=== PATIENT | female | born 1965 | race Caucasian/White ===

== ENCOUNTER 2021-12-04 08:42 | Outpatient (CLI) | payer OTHER, SELFPAY ==
--- NOTE | 2021-12-04 10:36 | W.ANESCHARGE ---
Anesthesia Charges Start Date/Time Anesthesia Start Date: 12/04/21 Anesthesia Start Time: 09:52 Stop Date/Time Anesthesia Stop Date: 12/04/21 Anesthesia Stop Time: 10:23 Summary Emergency: No
--- NOTE | 2021-12-04 11:33 | W.ANESCHARGE ---
Anesthesia Charges Start Date/Time Anesthesia Start Date: 12/04/21 Anesthesia Start Time: 09:52 Stop Date/Time Anesthesia Stop Date: 12/04/21 Anesthesia Stop Time: 10:23 Summary Emergency: No
== END 2021-12-04 08:43 | disposition home or self-care (01) ==
LOC: OP CLINIC 08:43
PROVIDERS: PCP Physician Assistant Medical; Referring Provider Surgery; Visit Provider Surgery
DX: Z12.11 Encounter for screening for malignant neoplasm of colon (principal); Z80.0 Family history of malignant neoplasm of digestive organs
CPT/HCPCS: G0105; 811; J2704

== ENCOUNTER 2023-03-13 12:48 | Outpatient (CLI) | payer OTHER, SELFPAY ==
--- NOTE | 2023-03-13 13:00 | CRLHL7_ITS ---
For Patients: As a result of the Century Cures Act, medical imaging exams and procedure reports are released immediately into your electronic medical record. You may view this report before your referring provider. If you have questions, please contact your health care provider. DXA BONE MINERAL DENSITY STUDY Reason for exam: On PPI treatment. Postmenopausal. Current height (in): 63. Weight (lb): 128. Menopause age: 43. Ethnicity: White. 1. Have you had a previous hip or vertebral fracture? No. 2. Have you had any fractures during your adult life which did not result from significant trauma (e.g., auto accident)? No. 3. Did either of your parents have a hip fracture? No. 4. Do you smoke? No. 5. Have you ever taken Glucocorticoids? No. 6. Do you have rheumatoid arthritis? No. 7. Do you have secondary osteoporosis? No. 8. Do you drink 3 or more alcoholic drinks per day? No. 9. Are you being treated for osteoporosis? No. 10. Have you ever taken any of the following medications: Actonel, Evista, Fosamax, Miacalcin, Reclast, Boniva, Forteo, HRT (i.e., estrogen/hormone therapy), Protelos, Prolia, Vitamin D, Calcium, other ??? please specify. ANSWER: Yes, calcium and omeprazole. 11. Do you have any of the following medical conditions: Anorexia or bulimia, asthma or emphysema, end stage renal disease, hyperparathyroidism, any seizure disorders, cancer, inflammatory bowel diseases, hysterectomy, other ??? please specify. ANSWER: No. 12. What was your maximum height (inches)? 63. 13. Do you perform weight bearing exercise regularly? Yes. 14. Do you regularly consume dairy products? No. 15. Do you drink caffeinated beverages? Yes. If female: 16. At what age did your period start? 14. 17. Are you premenopausal? No. 18. How many full-term pregnancies have you had? 2. 19. Have you ever missed your period for more than 6 months in a row (not including or menopause)? No. TECHNIQUE: Bone mineral density study was performed using the [employer]. FINDINGS: The results of the study expressed as bone mineral density (BMD) are as follows: Lumbar spine L1 to L4: BMD: 0.689 g/cm2. T-score: -3.3. Z-score: -2.1 Neck Left: BMD: 0.579 g/cm2. T-score: -2.4. Z-score: -1.3 Right: BMD: 0.538 g/cm2. T-score: -2.8. Z-score: -1.7 Total Left: BMD: 0.741 g/cm2. T-score: -1.6. Z-score: -0.9 Right: BMD: 0.694 g/cm2. T-score: -2.0. Z-score: -1.3 IMPRESSION: Osteoporosis. Raj Escobedo M.D. Diagnostic Radiologist [email or web address] EMILY/cade [email or web address]/Dictated by: Raj Escobedo MD @ 03/17/2023 8:50:00 AM (Electronically Signed)
== END 2023-03-13 12:49 | disposition home or self-care (01) ==
LOC: RAD 12:48
PROVIDERS: PCP Physician Assistant Medical; Visit Provider Physician Assistant Medical
DX: Z78.0 Asymptomatic menopausal state (principal); M81.0 Age-related osteoporosis without current pathological fracture; Z79.899 Other long term (current) drug therapy
CPT/HCPCS: 77080

== ENCOUNTER 2023-04-30 15:49 | Outpatient (CLI) | payer OTHER, SELFPAY | END 2023-04-30 15:50 | disposition home or self-care (01) | PROVIDERS: PCP Physician Assistant Medical; Visit Provider Physician Assistant Medical | DX: M81.0 Age-related osteoporosis without current pathological fracture (principal); Z13.9 Encounter for screening, unspecified; Z13.29 Encounter for screening for other suspected endocrine disorder | CPT/HCPCS: 82306; 82310; 82330; 83970; 84443; 86703; 86803 ==